=== PATIENT | female | born 1975 | race Caucasian/White ===

== ENCOUNTER 2017-10-15 20:26 | Observation (INO) ==
[2017-10-15] MEDS ORDERED: *HR* FentaNYL (PF) 100 MCG/2 ML VIAL IM ONE (21:32)
--- NOTE | 2017-10-15 21:32 | Emergency Department Note ---
Disposition Clinical Impression: Back pain Qualifiers: Back pain location: low back pain Chronicity: acute Back pain laterality: unspecified Sciatica presence: unspecified whether sciatica present Qualified Code(s): M54.5 - Low back pain Disposition: Still a Patient Referrals: Mathieu Smith MD [Primary Care Provider] - Forms: ED Satisfaction Letter General Adult HPI - General Chief complaint: ED Recheck/Abnormal Lab/Rx Stated complaint: incision site pain,swelling in legs,dizzy Time Seen by Provider: 10/15/17 21:17 Source: patient Limitations: no limitations Nursing Notes Reviewed: Yes Vital Signs Reviewed: Yes - History of Present Illness HPI Narrative: 42-year-old female who had a spinal cord stimulator removed couple of days ago. She was seen here 4 days ago for similar complaints as today and was found to have no issues. She says she is having worsening back pain called her pain management doctor who indicated he was concerned about a deep infection. Pt Subjective Complaint: Possible infection at spinal cord stimulator site Onset (ago): day(s) Location: back Radiation: extremity Pain Severity: moderate Pain Scale: 9 Quality: aching Consistency: constant Improves with: nothing Worsens with: nothing Associated symptoms: Denies: fever/chills Treatments Prior to Arrival: none - Related Data Home Medications Medication Instructions Recorded Confirmed Cholecalciferol (D-3) 5,000 unit PO DAILY 06/06/15 10/08/17 Losartan [Cozaar] 50 mg PO BID 06/06/15 10/08/17 Butalbital/Aspirin/Caffeine 1 each PO PRN PRN 01/27/16 10/08/17 [Fiorinal 50-325-40 mg Capsule] Carvedilol 12.5 mg PO BID 01/27/16 10/08/17 Citalopram Hydrobromide [Celexa] 10 mg PO DAILY 01/27/16 10/08/17 Pregabalin [Lyrica] 75 mg PO BID 01/27/16 10/08/17 Promethazine HCl 12.5 mg PO BID PRN 01/27/16 10/08/17 Ibuprofen [Motrin] 800 mg PO TID PRN 10/08/17 10/08/17 Mirtazapine [Remeron] 30 mg PO HS 10/08/17 10/08/17 Omeprazole [PriLOSEC] 40 mg PO DAILY 10/08/17 10/08/17 Propranolol [Inderal] 20 mg PO TID 10/08/17 10/08/17 Previous Rx's Medication Instructions Recorded clonazePAM [Klonopin] 1 mg PO TID PRN #90 tablet 05/22/16 Allergies Allergy/AdvReac Type Severity Reaction Status Date / Time butalbital Allergy Severe suicidal Verified 10/02/17 13:21 ideations lip swelling Penicillins Allergy Hives Verified 10/02/17 13:21 duloxetine [From Cymbalta] AdvReac Anxiety Verified 10/02/17 13:21 gabapentin AdvReac Muscle Pain Verified 10/02/17 13:21 hydrocodone AdvReac Dizziness Verified 10/02/17 13:21 lurasidone [From Latuda] AdvReac Hallucinati Verified 10/02/17 13:21 ng All systems ED: reviewed and negative except as stated. Constitutional: Denies: fever, chills, weakness, weight change Eyes: Denies: eye pain, eye discharge, vision change ENT ED: Denies: ear pain, throat pain, dental pain, hearing loss, epistaxis, congestion, dysphagia Cardiovascular: Denies: chest pain, palpitations, dyspnea on exertion, edema, syncope Respiratory: Denies: cough, dyspnea, wheezes, hemoptysis, stridor Gastrointestinal: Denies: abdominal pain, nausea, vomiting, diarrhea, constipation, hematemesis, melena, hematochezia Genitourinary: Denies: dysuria, frequency, hematuria, discharge Musculoskeletal: Reports: back pain. Denies: neck pain, arthralgia, myalgia Integumentary: Denies: rash, abrasion, lesions Neurological: Denies: headache, weakness, numbness, paresthesias, confusion, abnormal gait, vertigo Psychiatric: Denies: anxiety, depression, suicidal thoughts, homicidal thoughts , auditory hallucinations, visual hallucinations Endocrine: Denies: fatigue Hematological/Lymphatic: Denies: easy bleeding, easy bruising Allergic/Immunologic: Denies: facial swelling, urticaria Past Medical History - Past Medical History Medical history: Reports: arthritis, GERD, glaucoma, hyperlipidemia, hypertension, liver disease, migraine, osteoporosis, other Surgical history: Reports: , hysterectomy Psychiatric history: Reports: anxiety, depression, panic disorder, previous psychiatric hospitalization 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 - Social History Smoking Status: Current every day smoker Smokeless Tobacco Status: No Alcohol use: Reports: none Drug use: Reports: none Physical Exam - General Limitations: no limitations General appearance: alert, in no apparent distress - Head Head exam: atraumatic, normocephalic, normal inspection - Eye Eye exam: Present: normal appearance - ENT ENT exam: normal exam, normal oropharynx, mucous membranes moist - Neck Neck exam: Present: normal inspection, full ROM, trachea midline - Chest Chest inspection: Present: normal inspection, symmetric chest wall rise - Respiratory Respiratory exam: Present: normal lung sounds bilaterally - Cardiovascular Cardiovascular exam: Present: regular rate, normal rhythm, normal heart sounds - Abdominal Exam Abdominal exam: Present: soft, Non-Tender. Absent: tenderness, distention, guarding, rebound, rigidity - Extremities Exam Extremities exam: Present: pedal edema - Expanded Lower Extremity Exam Neurovascular/Tendon exam: Absent: motor deficit, sensory deficit, tendon deficit Gait: observed and normal - Back Exam Back exam: Present: other (Midline incision with some slight redness tender to palpation. Skin of the battery site has some mild tenderness.) - Neurological Exam Neurological exam: Present: alert, oriented X3 - Psychiatric Psychiatric exam: Present: normal affect, normal mood - Skin Skin exam: Present: warm, dry, intact, normal color Course Vital Signs Temperature 98.5 F 10/15/17 20:34 Pulse Rate 89 10/15/17 20:34 Respiratory Rate 18 10/15/17 20:34 Blood Pressure 136/86 10/15/17 20:34 O2 Sat by Pulse Oximetry 97 10/15/17 20:34 Temperature 98.5 F 10/15/17 20:34 Pulse Rate 89 10/15/17 20:34 Respiratory Rate 18 10/15/17 20:34 Blood Pressure 136/86 10/15/17 20:34 O2 Sat by Pulse Oximetry 97 10/15/17 20:34 Oxygen Delivery Oxygen Delivery Room Air Medical Decision Making - Lab Data Result diagrams: 10/15/17 21:44 10/15/17 21:44 Lab Results 10/15/17 10/15/17 10/15/17 Range/Units 21:44 21:44 21:44 WBC 7.2 (4.3-11.1) K/mcL RBC 4.63 (3.82-4.97) M/mcL Hgb 14.0 (11.5-15.4) g/dL Hct 42.7 (35.3-44.9) % MCV 92.2 (83.0-100.0) fL MCH 30.2 (28.0-33.3) pg MCHC 32.8 (31.6-35.5) g/dL RDW 12.3 (11.5-14.5) % Plt Count 238 (140-400) K/mcL MPV 9.1 L (9.4-12.4) fL Immature Gran % 0.3 (0-4) % Seg Neutrophils % 42.9 % Lymphocytes % 47.1 % Monocytes % 7.4 % Eosinophils % 2.0 % Basophils % 0.3 % Neutrophils # 3.1 (1.6-8.9) K/mcL Lymphocytes # 3.4 (0.6-4.6) K/mcL Monocytes # 0.5 (0.0-1.3) K/mcL Eosinophils # 0.1 (0.0-0.6) K/mcL Basophils # 0.0 (0.0-0.2) K/mcL ESR 15 (0-15) mm/hr Sodium 136 (136-145) mEq/L Potassium 3.9 (3.5-5.1) mEq/L Chloride 104 (98-107) mEq/L Carbon Dioxide 30 H (23-29) mEq/L BUN 7 (6-20) mg/dL Creatinine 0.62 (0.60-1.20) mg/dL Est GFR ( Amer) > 60 (> 60) Est GFR (Non-Af Amer) > 60 (> 60) BUN/Creatinine Ratio 11 (6-26) Glucose 85 (70-105) mg/dL Calculated Osmolality 279 L (280-300) Lactic Acid (0.5-2.2) mmol/L Calcium 9.3 (8.6-10.3) mg/dL B-Natriuretic Peptide (Less than 100) pg/mL Urine Color (Yellow) Urine Clarity (Clear) Urine pH (5.0-8.0) pH Units Ur Specific [place] (1.010-1.025) Urine Protein (Neg-Trace) mg/dL Urine Glucose (UA) (Normal) mg/dL Urine Ketones (Negative) mg/dL Urine Blood (Negative) Urine Nitrite (Negative) Urine Bilirubin (Negative) Urine Urobilinogen (Normal) mg/dL Ur Leukocyte Esterase (Negative) Ur Culture Indicated? (NO) 10/15/17 10/15/17 10/15/17 Range/Units 21:44 21:44 21:50 WBC (4.3-11.1) K/mcL RBC (3.82-4.97) M/mcL Hgb (11.5-15.4) g/dL Hct (35.3-44.9) % MCV (83.0-100.0) fL MCH (28.0-33.3) pg MCHC (31.6-35.5) g/dL RDW (11.5-14.5) % Plt Count (140-400) K/mcL MPV (9.4-12.4) fL Immature Gran % (0-4) % Seg Neutrophils % % Lymphocytes % % Monocytes % % Eosinophils % % Basophils % % Neutrophils # (1.6-8.9) K/mcL Lymphocytes # (0.6-4.6) K/mcL Monocytes # (0.0-1.3) K/mcL Eosinophils # (0.0-0.6) K/mcL Basophils # (0.0-0.2) K/mcL ESR (0-15) mm/hr Sodium (136-145) mEq/L Potassium (3.5-5.1) mEq/L Chloride (98-107) mEq/L Carbon Dioxide (23-29) mEq/L BUN (6-20) mg/dL Creatinine (0.60-1.20) mg/dL Est GFR ( Amer) (> 60) Est GFR (Non-Af Amer) (> 60) BUN/Creatinine Ratio (6-26) Glucose (70-105) mg/dL Calculated Osmolality (280-300) Lactic Acid 0.6 (0.5-2.2) mmol/L Calcium (8.6-10.3) mg/dL B-Natriuretic Peptide 31 (Less than 100) pg/mL Urine Color Yellow (Yellow) Urine Clarity Clear (Clear) Urine pH 7.0 (5.0-8.0) pH Units Ur Specific [place] 1.010 (1.010-1.025) Urine Protein Negative (Neg-Trace) mg/dL Urine Glucose (UA) Normal (Normal) mg/dL Urine Ketones Negative (Negative) mg/dL Urine Blood Negative (Negative) Urine Nitrite Negative (Negative) Urine Bilirubin Negative (Negative) Urine Urobilinogen Normal (Normal) mg/dL Ur Leukocyte Esterase Negative (Negative) Ur Culture Indicated? NO (NO) Geovanny - Geovanny Recommendation: Recommendation based on pending studies, treatments, or consults S.B.Marvel Report Given to: Dr. Francie Small Repor Time: 22:58
[2017-10-15 21:55] LABS: Basophils % 0.3 %; Eosinophils # 0.1 K/mcL (0.0-0.6); Hematocrit 42.7 % (35.3-44.9); Immature Granulocytes % 0.3 % (0-4); Lymphocytes # 3.4 K/mcL (0.6-4.6); Lymphocytes % 47.1 %; Mean Corpuscular HGB Conc 32.8 g/dL (31.6-35.5); Mean Corpuscular Hemoglobin 30.2 pg (28.0-33.3); Mean Corpuscular Volume 92.2 fL (83.0-100.0); Mean Platelet Volume 9.1 fL (9.4-12.4); Monocytes # 0.5 K/mcL (0.0-1.3); Monocytes % 7.4 %; Neutrophils # 3.1 K/mcL (1.6-8.9); Platelet Count 238 K/mcL (140-400); Red Blood Count 4.63 M/mcL (3.82-4.97); Red Cell Distribution Width 12.3 % (11.5-14.5); Segmented Neutrophils % 42.9 %
[2017-10-15 21:58] LABS: Bilirubin,Urine Negative (Negative); Blood,Urine Negative (Negative); Clarity,Urine Clear (Clear); Color,Urine Yellow (Yellow); Glucose,Urine (UA) Normal (Normal); Ketones,Urine Negative (Negative); Leukocyte Esterase,Urine Negative (Negative); Nitrite,Urine Negative (Negative); Protein,Urine Negative (Neg-Trace); Urobilinogen,Urine Normal (Normal)
[2017-10-15 22:14] LABS: BUN/Creatinine Ratio 11 (6-26); Blood Urea Nitrogen 7 mg/dL (6-20); Calcium 9.3 mg/dL (8.6-10.3); Carbon Dioxide 30 mEq/L (23-29); Chloride 104 mEq/L (98-107); Glucose 85 mg/dL (70-105); Osmolality,Calculated 279 (280-300); Potassium 3.9 mEq/L (3.5-5.1); Sodium 136 mEq/L (136-145); eGFR For African Americans > 60 (> 60); eGFR For Non-African Americans > 60 (> 60)
[2017-10-15] MEDS ORDERED: *HR* FentaNYL (PF) 100 MCG/2 ML VIAL IVP ONE (22:18)
[2017-10-15] MEDS ORDERED: *HR* FentaNYL (PF) 100 MCG/2 ML VIAL ONE (22:21)
--- NOTE | 2017-10-15 23:00 | Emergency Department Note ---
Disposition Clinical Impression: Postoperative back pain, Seroma after procedure Back pain Qualifiers: Back pain location: low back pain Chronicity: acute Back pain laterality: unspecified Sciatica presence: unspecified whether sciatica present Qualified Code(s): M54.5 - Low back pain Disposition: Admitted As Inpatient Condition: Good Referrals: Mathieu Smith MD [Primary Care Provider] - Forms: ED Satisfaction Letter Time of Disposition: 23:57 General Adult HPI - General Chief complaint: ED Recheck/Abnormal Lab/Rx Stated complaint: incision site pain,swelling in legs,dizzy Time Seen by Provider: 10/15/17 21:17 Source: patient Limitations: no limitations - History of Present Illness Location: back Pain Scale: 9 Quality: aching Improves with: nothing Worsens with: nothing Associated symptoms: Denies: fever/chills Treatments Prior to Arrival: none - Related Data Home Medications Medication Instructions Recorded Confirmed Cholecalciferol (D-3) 5,000 unit PO DAILY 06/06/15 10/08/17 Losartan [Cozaar] 50 mg PO BID 06/06/15 10/08/17 Butalbital/Aspirin/Caffeine 1 each PO PRN PRN 01/27/16 10/08/17 [Fiorinal 50-325-40 mg Capsule] Carvedilol 12.5 mg PO BID 01/27/16 10/08/17 Citalopram Hydrobromide [Celexa] 10 mg PO DAILY 01/27/16 10/08/17 Pregabalin [Lyrica] 75 mg PO BID 01/27/16 10/08/17 Promethazine HCl 12.5 mg PO BID PRN 01/27/16 10/08/17 Ibuprofen [Motrin] 800 mg PO TID PRN 10/08/17 10/08/17 Mirtazapine [Remeron] 30 mg PO HS 10/08/17 10/08/17 Omeprazole [PriLOSEC] 40 mg PO DAILY 10/08/17 10/08/17 Propranolol [Inderal] 20 mg PO TID 10/08/17 10/08/17 Previous Rx's Medication Instructions Recorded clonazePAM [Klonopin] 1 mg PO TID PRN #90 tablet 05/22/16 Allergies Allergy/AdvReac Type Severity Reaction Status Date / Time butalbital Allergy Severe suicidal Verified 10/02/17 13:21 ideations lip swelling Penicillins Allergy Hives Verified 10/02/17 13:21 duloxetine [From Cymbalta] AdvReac Anxiety Verified 10/02/17 13:21 gabapentin AdvReac Muscle Pain Verified 10/02/17 13:21 hydrocodone AdvReac Dizziness Verified 10/02/17 13:21 lurasidone [From Latuda] AdvReac Hallucinati Verified 10/02/17 13:21 ng Constitutional: Denies: fever, chills, weakness, weight change Eyes: Denies: eye pain, eye discharge, vision change ENT ED: Denies: ear pain, throat pain, dental pain, hearing loss, epistaxis, congestion, dysphagia Cardiovascular: Denies: chest pain, palpitations, dyspnea on exertion, edema, syncope Respiratory: Denies: cough, dyspnea, wheezes, hemoptysis, stridor Gastrointestinal: Denies: abdominal pain, nausea, vomiting, diarrhea, constipation, hematemesis, melena, hematochezia Genitourinary: Denies: dysuria, frequency, hematuria, discharge Musculoskeletal: Reports: back pain. Denies: neck pain, arthralgia, myalgia Integumentary: Denies: rash, abrasion, lesions Neurological: Denies: headache, weakness, numbness, paresthesias, confusion, abnormal gait, vertigo Psychiatric: Denies: anxiety, depression, suicidal thoughts, homicidal thoughts , auditory hallucinations, visual hallucinations Endocrine: Denies: fatigue Hematological/Lymphatic: Denies: easy bleeding, easy bruising Allergic/Immunologic: Denies: facial swelling, urticaria Past Medical History - Past Medical History Medical history: Reports: arthritis, GERD, glaucoma, hyperlipidemia, hypertension, liver disease, migraine, osteoporosis, other Surgical history: Reports: , hysterectomy Psychiatric history: Reports: anxiety, depression, panic disorder, previous psychiatric hospitalization 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 - Social History Smoking Status: Current every day smoker Smokeless Tobacco Status: No Alcohol use: Reports: none Drug use: Reports: none Physical Exam - General Limitations: no limitations General appearance: alert, in no apparent distress Course Vital Signs Temperature 98.5 F 10/15/17 20:34 Pulse Rate 89 10/15/17 20:34 Respiratory Rate 18 10/15/17 20:34 Blood Pressure 136/86 10/15/17 20:34 O2 Sat by Pulse Oximetry 97 10/15/17 20:34 Temperature 98.5 F 10/15/17 20:34 Pulse Rate 89 10/15/17 20:34 Respiratory Rate 18 10/15/17 20:34 Blood Pressure 136/86 10/15/17 20:34 O2 Sat by Pulse Oximetry 97 10/15/17 20:34 Oxygen Delivery Oxygen Delivery Room Air Medical Decision Making - Lab Data Lab results reviewed: Yes I reviewed the patient's lab results. Result diagrams: 10/15/17 21:44 10/15/17 21:44 Lab Results 10/15/17 10/15/17 10/15/17 Range/Units 21:44 21:44 21:44 WBC 7.2 (4.3-11.1) K/mcL RBC 4.63 (3.82-4.97) M/mcL Hgb 14.0 (11.5-15.4) g/dL Hct 42.7 (35.3-44.9) % MCV 92.2 (83.0-100.0) fL MCH 30.2 (28.0-33.3) pg MCHC 32.8 (31.6-35.5) g/dL RDW 12.3 (11.5-14.5) % Plt Count 238 (140-400) K/mcL MPV 9.1 L (9.4-12.4) fL Immature Gran % 0.3 (0-4) % Seg Neutrophils % 42.9 % Lymphocytes % 47.1 % Monocytes % 7.4 % Eosinophils % 2.0 % Basophils % 0.3 % Neutrophils # 3.1 (1.6-8.9) K/mcL Lymphocytes # 3.4 (0.6-4.6) K/mcL Monocytes # 0.5 (0.0-1.3) K/mcL Eosinophils # 0.1 (0.0-0.6) K/mcL Basophils # 0.0 (0.0-0.2) K/mcL ESR 15 (0-15) mm/hr Sodium 136 (136-145) mEq/L Potassium 3.9 (3.5-5.1) mEq/L Chloride 104 (98-107) mEq/L Carbon Dioxide 30 H (23-29) mEq/L BUN 7 (6-20) mg/dL Creatinine 0.62 (0.60-1.20) mg/dL Est GFR ( Amer) > 60 (> 60) Est GFR (Non-Af Amer) > 60 (> 60) BUN/Creatinine Ratio 11 (6-26) Glucose 85 (70-105) mg/dL Calculated Osmolality 279 L (280-300) Lactic Acid (0.5-2.2) mmol/L Calcium 9.3 (8.6-10.3) mg/dL B-Natriuretic Peptide (Less than 100) pg/mL Urine Color (Yellow) Urine Clarity (Clear) Urine pH (5.0-8.0) pH Units Ur Specific [place] (1.010-1.025) Urine Protein (Neg-Trace) mg/dL Urine Glucose (UA) (Normal) mg/dL Urine Ketones (Negative) mg/dL Urine Blood (Negative) Urine Nitrite (Negative) Urine Bilirubin (Negative) Urine Urobilinogen (Normal) mg/dL Ur Leukocyte Esterase (Negative) Ur Culture Indicated? (NO) 10/15/17 10/15/17 10/15/17 Range/Units 21:44 21:44 21:50 WBC (4.3-11.1) K/mcL RBC (3.82-4.97) M/mcL Hgb (11.5-15.4) g/dL Hct (35.3-44.9) % MCV (83.0-100.0) fL MCH (28.0-33.3) pg MCHC (31.6-35.5) g/dL RDW (11.5-14.5) % Plt Count (140-400) K/mcL MPV (9.4-12.4) fL Immature Gran % (0-4) % Seg Neutrophils % % Lymphocytes % % Monocytes % % Eosinophils % % Basophils % % Neutrophils # (1.6-8.9) K/mcL Lymphocytes # (0.6-4.6) K/mcL Monocytes # (0.0-1.3) K/mcL Eosinophils # (0.0-0.6) K/mcL Basophils # (0.0-0.2) K/mcL ESR (0-15) mm/hr Sodium (136-145) mEq/L Potassium (3.5-5.1) mEq/L Chloride (98-107) mEq/L Carbon Dioxide (23-29) mEq/L BUN (6-20) mg/dL Creatinine (0.60-1.20) mg/dL Est GFR ( Amer) (> 60) Est GFR (Non-Af Amer) (> 60) BUN/Creatinine Ratio (6-26) Glucose (70-105) mg/dL Calculated Osmolality (280-300) Lactic Acid 0.6 (0.5-2.2) mmol/L Calcium (8.6-10.3) mg/dL B-Natriuretic Peptide 31 (Less than 100) pg/mL Urine Color Yellow (Yellow) Urine Clarity Clear (Clear) Urine pH 7.0 (5.0-8.0) pH Units Ur Specific [place] 1.010 (1.010-1.025) Urine Protein Negative (Neg-Trace) mg/dL Urine Glucose (UA) Normal (Normal) mg/dL Urine Ketones Negative (Negative) mg/dL Urine Blood Negative (Negative) Urine Nitrite Negative (Negative) Urine Bilirubin Negative (Negative) Urine Urobilinogen Normal (Normal) mg/dL Ur Leukocyte Esterase Negative (Negative) Ur Culture Indicated? NO (NO) - Radiology Data Radiology results reviewed: Yes I reviewed the patient's radiology results. Attestation Statement - Attestation Attestation: Care of patient assumed from Dr. Pino at 11 PM pending lower extremity venous Dopplers and MRI of lumbar spine. She presented with back pain after removal of a pain stimulator. 23:56: MRI results. Fluid collections suggestive seromas versus possible infectious etiology. I will request admission to the medicine service for further evaluation. Patient requested additional analgesics
[2017-10-15] MEDS ORDERED: *HR* Morphine Immed Rel 30 MG TABLET PO ONE (23:55)
[2017-10-16] MEDS ORDERED: Acetaminophen 325 MG TABLET PO PRN (03:14)
[2017-10-16] MEDS ORDERED: Naloxone 0.4 MG/ML INJ IVP PRN (03:14)
[2017-10-16] MEDS ORDERED: Ibuprofen 800 MG TABLET PO PRN (03:18)
[2017-10-16] MEDS ORDERED: ASPIRIN PO PRN (03:18)
[2017-10-16] MEDS ORDERED: clonazePAM 1 MG TABLET PO PRN (03:18)
[2017-10-16] MEDS ORDERED: [UNRECOGNIZED DRUG - OTHER] PO PRN (03:18)
[2017-10-16] MEDS ORDERED: BUTALBITAL PO PRN (03:18)
[2017-10-16] MEDS ORDERED: CAFFEINE PO PRN (03:18)
[2017-10-16] MEDS: *HR* OxyCODONE/APAP 5/325 TABLET PO PRN ×2 (05:06→15:43)
--- NOTE | 2017-10-16 05:17 | Internal Med History&Physical ---
Date of Encounter: 10/16/17 Time of Encounter: 02:00 Assessment and Plan (1) DVT prophylaxis Current visit: Yes Status: Acute Heparin SC (2) Postoperative back pain Current visit: Yes Status: Acute Cont pain medication. Need pain management consult, non urgent, dayshift to call. (3) Seroma after procedure Current visit: Yes Status: Acute Cannot r/o infection. Pt has no fever or leukocytosis. ER empirically started vanco, will cont. F/U blood culture. Pain management consult. (4) Chronic low back pain Current visit: No Status: Acute Cont pain management with pain medication. Qualifiers: Back pain laterality: bilateral Sciatica presence: with sciatica Sciatica laterality: bilateral sciatica Qualified Code(s): M54.42 - Lumbago with sciatica, left side; M54.41 - Lumbago with sciatica, right side; M54.41 - Lumbago with sciatica, right side; G89.29 - Other chronic pain; G89.29 - Other chronic pain Internal Medicine - H&P: HPI Chief complaint: back pain Admitted From: Home Plans for Post Hospital Care: Home History of present illness: Ms. Ocampo is a 42 year old female with Hx of HTN, chronic back pain and leg weakness present to ER for back pain. Pt was placed a spinal stimulator arround 8 months ago by pain specialist Dr Walker. Pt feels bump and the stimulator was removed about 1 week ago. Pt feels back pain is getting worse with leg weakness. She has no fever, no SOB. She c/o mild nausea but no vomiting. She called Dr Walker's office and was advised to come to ER. In ER, MRI L-Spine has been done, which shows fluid collection in paraspinal area, suggest postoperative seromas but cannot r/o infection. Pt was admitted for further management. Past Med Surg Social Fam HX - Past Medical History Medical history: arthritis, GERD, glaucoma, hyperlipidemia, hypertension, liver disease, migraine, osteoporosis, other Psychiatric history: anxiety, depression, panic disorder, previous psychiatric hospitalization - Past Surgical History Surgical History: , hysterectomy - Social History Smoking Status: Current every day smoker Packs per day: 1 Smokeless Tobacco Status: No Alcohol use: none Drug use: none - Family History Mother History Unknown: Yes Internal Medicine - H&P: Meds Losartan [Cozaar] 50 mg PO BID 06/06/15 [History] Butalbital/Aspirin/Caffeine [Fiorinal 50-325-40 mg Capsule] 1 each PO PRN PRN [History] Carvedilol 12.5 mg PO BID 01/27/16 [History] Citalopram Hydrobromide [Celexa] 40 mg PO DAILY 01/27/16 [History] Pregabalin [Lyrica] 150 mg PO TID 01/27/16 [History] Promethazine HCl 12.5 mg PO BID PRN 01/27/16 [History] clonazePAM [Klonopin] 1 mg PO TID PRN #90 tablet 05/22/16 [Rx] Ibuprofen [Motrin] 800 mg PO TID PRN 10/08/17 [History] Omeprazole [PriLOSEC] 40 mg PO DAILY 10/08/17 [History] Propranolol [Inderal] 20 mg PO TID 10/08/17 [History] 3 Allergy/AdvReac Type Severity Reaction Status Date / Time butalbital Allergy Severe suicidal Verified 10/02/17 13:21 ideations lip swelling Penicillins Allergy Hives Verified 10/02/17 13:21 duloxetine [From Cymbalta] AdvReac Anxiety Verified 10/02/17 13:21 gabapentin AdvReac Muscle Pain Verified 10/02/17 13:21 hydrocodone AdvReac Dizziness Verified 10/02/17 13:21 lurasidone [From Latuda] AdvReac Hallucinati Verified 10/02/17 13:21 ng All Systems PM: A 10-system review of systems was performed and is negative for pertinent findings except as documented above in the HPI. - Constitutional Vitals: Temp Pulse Resp BP Pulse Ox 98.2 F 91 16 105/68 92 10/16/17 03:29 10/16/17 03:29 10/16/17 03:29 10/16/17 03:29 10/16/17 03:29 General appearance: Present: A&O X 3, no acute distress, answers questions appropriately - Head Head exam: Present: atraumatic, normocephalic - Eye Eye exam: Present: PERRL, conjuntiva pink, sclera anicteric Pupils: Present: PERRL - Neck Neck exam general surgery: Present: supple, trachea midline. Absent: lymphadenopathy - Respiratory Respiratory exam: Present: CTAB. Absent: accessory muscle use, rales, rhonchi, wheezes - Cardiovascular Cardiovascular exam: Present: RRR, +S1, +S2. Absent: diastolic murmur, gallop, rubs, systolic murmur - GI/Abdominal GI/Abdominal exam: Present: normal bowel sounds, soft, no peritoneal signs. Absent: distended, tenderness - Extremities Exam Extremities exam: Present: warm, radial pulses palpable and symmetrical. Absent : calf tenderness, cyanotic, pedal edema Additional comments: Incision on the back is clean, no signs of infection. - Neurological Exam Neurological exam: Present: CN II-XII intact, oriented X3, no focal deficits. Absent: pronater drift, facial droop, speech deficit - Skin Skin exam: Present: dry, intact Internal Med - H&P Results - Labs CBC & Chem 7: 10/15/17 21:44 10/15/17 21:44
[2017-10-16] MEDS ORDERED: *HR* Heparin 5,000 UNIT/ML VIAL SQ SCH (06:00)
[2017-10-16 06:13] LABS: Basophils % 0.4 %; Eosinophils # 0.1 K/mcL (0.0-0.6); Hematocrit 38.7 % (35.3-44.9); Hemoglobin 12.5 g/dL (11.5-15.4); Immature Granulocytes % 0.2 % (0-4); Lymphocytes # 2.7 K/mcL (0.6-4.6); Lymphocytes % 48.5 %; Mean Corpuscular HGB Conc 32.3 g/dL (31.6-35.5); Mean Platelet Volume 9.1 fL (9.4-12.4); Monocytes # 0.6 K/mcL (0.0-1.3); Neutrophils # 2.1 K/mcL (1.6-8.9); Platelet Count 192 K/mcL (140-400); Red Blood Count 4.16 M/mcL (3.82-4.97); Red Cell Distribution Width 12.4 % (11.5-14.5); Segmented Neutrophils % 38.9 %
[2017-10-16 06:37] LABS: BUN/Creatinine Ratio 11 (6-26); Blood Urea Nitrogen 6 mg/dL (6-20); Calcium 8.7 mg/dL (8.6-10.3); Carbon Dioxide 30 mEq/L (23-29); Chloride 107 mEq/L (98-107); Glucose 97 mg/dL (70-105); Magnesium 1.8 mg/dL (1.6-2.6); Osmolality,Calculated 284 (280-300); Potassium 4.1 mEq/L (3.5-5.1); Sodium 138 mEq/L (136-145); eGFR For African Americans > 60 (> 60); eGFR For Non-African Americans > 60 (> 60)
[2017-10-16] MEDS: Pregabalin 75 MG CAPSULE PO SCH ×2 (09:46→15:43)
--- NOTE | 2017-10-16 12:06 | Pain Management Consultation ---
Date of Encounter: 10/16/17 Time of Encounter: 12:00 Assessment and Plan (1) Seroma after procedure Current Visit: Yes Status: Acute Small post operative seroma present, no concern for infection based on afebrile exam, lack of focal neurologic deficits, typical MRI study for surgery she had, normal white blood cell count, and lack of other subjective signs of infection. Recommend discharge to home. I have made an outpatient follow-up with me in the next 1-2 weeks. Recommend use of an abdominal binder to stabilize the incision sites and promote healing as well as limits ROM of formation. Recommend very short course of oral Percocet over the next 1-3 days but no longer. Patient should be instructed to call my office if she is having any other problems or feel she is getting worse. The assessment and plan as outlined above was discussed with the patient and/or family members who expressed understanding and agreement. All questions were answered. History of Present Illness Chief complaint: back pain HPI: Ms. Ocampo is a 42 year old female complaining of back pain after surgical removal of leads and impulse generator that were a neuromodulation system. The patient complains of pain in her back in a generalized feeling of weakness. She states the pain is in her back and travels into her legs like it typically has in the past. She feels more pain on the right side of her lower back than on the left. She also says that there was a lump in the middle of her back that is now not present. Overall, her pain score right now is 8/10. She occasionally has pain traveling into her legs that is not a new finding for her. Pain is described as an ache in her back. Standing and walking makes the pain worse. Percocet makes the pain better. She denies any side effects from Percocet. She denies fever, chills, stiffness in her back. Past Med Surg Social Fam HX - Past Medical History Medical history: arthritis, GERD, glaucoma, hyperlipidemia, hypertension, liver disease, migraine, osteoporosis, other Psychiatric history: anxiety, depression, panic disorder, previous psychiatric hospitalization - Past Surgical History Surgical History: , hysterectomy - Social History Smoking Status: Current every day smoker Packs per day: 1 Smokeless Tobacco Status: No Alcohol use: none Drug use: none - Family History Mother History Unknown: Yes Medications and Allergies Losartan [Cozaar] 50 mg PO BID 06/06/15 [History] Carvedilol 12.5 mg PO BID 01/27/16 [History] Citalopram Hydrobromide [Celexa] 40 mg PO DAILY 01/27/16 [History] Pregabalin [Lyrica] 150 mg PO TID 01/27/16 [History] Promethazine HCl 12.5 mg PO BID PRN 01/27/16 [History] clonazePAM [Klonopin] 1 mg PO TID PRN #90 tablet 05/22/16 [Rx] Omeprazole [PriLOSEC] 40 mg PO DAILY 10/08/17 [History] Propranolol [Inderal] 20 mg PO TID 10/08/17 [History] 3 Allergy/AdvReac Type Severity Reaction Status Date / Time butalbital Allergy Severe suicidal Verified 10/02/17 13:21 ideations lip swelling Penicillins Allergy Hives Verified 10/02/17 13:21 duloxetine [From Cymbalta] AdvReac Anxiety Verified 10/02/17 13:21 gabapentin AdvReac Muscle Pain Verified 10/02/17 13:21 hydrocodone AdvReac Dizziness Verified 10/02/17 13:21 lurasidone [From Latuda] AdvReac Hallucinati Verified 10/02/17 13:21 ng Review of Systems - Constitutional Constitutional ROS IM: no photophobia, no phonophobia, no daytime sleepiness, no fever(s), no stops breathing during sleep - EENT Nose, mouth and throat: no headache(s), no neck pain, no neck trauma - Cardiovascular Cardiovascular ROS: no chest pain, no leg edema, no lightheadedness - Respiratory Respiratory: no pain on inspiration, no pain with cough - Gastrointestinal Gastrointestinal: no abdominal pain, no constipation, no diarrhea, no heartburn - Genitourinary Genitourinary ROS: no difficulty urinating, no flank pain, no urinary hesitancy - Musculoskeletal Musculoskeletal ROS: no muscle weakness, no numbness, no radiating pain into limb, no tingling - Integumentary Integumentary: no erythema, no lesions, no swelling - Neurological Neurological ROS: no abnormal gait, no behavioral changes, no focal weakness, no radicular pain - Psychiatric Psychiatric general: no anxiety, no confusion, no depression - Hematologic/Lymphatic Hematologic/Lymphatic pediatric: no easy bleeding, no easy bruising Physical Exam Initial Vital Signs Temp Pulse Resp BP Pulse Ox 98.5 F 89 18 136/86 97 10/15/17 20:34 10/15/17 20:34 10/15/17 20:34 10/15/17 20:34 10/15/17 20:34 - Additional Findings EYES:: pupils equal and round, no myosis. SKIN:: no areas of echymoses or petechiae incisions are healing well. No signs of drainage. No erythema. No swelling. Minimal tenderness with deep palpation over both wounds. CARDIOVASCULAR:: regular rate and rhythm PULMONARY:: Quiet, normal respiratory pattern. GASTROINTESTINAL:: nontender. soft. MUSCULOSKELETAL PALPATION:: paraspinous musculature is tender to deep palpation in the lumbar area bilaterally, right more so, unchanged from prior exams. ROM:: Active flexion and extension are reduced in the lumbar area. Active Rotation is normal in the lumbar area. STRENGTH:: RIGHT knee extension 5/5 :: LEFT knee extension 5/5 RIGHT knee flexion 5/5 :: LEFT knee flexion 5/5 RIGHT ankle dorsiflexion 5/5 :: LEFT ankle dorsiflexion 5/5 RIGHT ankle plantarflexion 5/5 :: LEFT ankle plantarflexion 5/5 RIGHT great toe dorsiflexion 5/5 :: LEFT great toe dorsiflexion 5/5 RIGHT great toe plantarflexion 5/5 :: LEFT great toe plantarflexion 5/5 NEUROLOGIC SENSATION:: hypesthesia is not noted in lower extremity dermatomes. SIGNS OF NEUROVASCULAR COMPRESSION Clonus: 1-2 beats at both ankles. Spasticity:: none Atrophy:: not present in UE or LE musculature Fasciculation:: not present in UE or LE musculature PSYCHIATRIC:: ORIENTATION:: awake and alert. INSIGHT:: good awareness of illness. AFFECT:: pleasant. Radiology Images Viewed By Me:: October 15, 2017 lumbar MRI shows small fluid collections posterior to the L3 spinous process and to a lesser extent in the flank. Fluid collections consistent with postoperative seroma. Laboratory values:: What blood cell count yesterday normal and even lower today. I have reviewed and agree with information documented in the scribed documentation, ROS, patient medications, allergies, medical history, surgical history, social history, and family history. Results - Labs 10/16/17 05:52 10/16/17 05:52 Abnormal lab results MPV 9.1 fL (9.4-12.4) L 10/16/17 05:52 Carbon Dioxide 30 mEq/L (23-29) H 10/16/17 05:52 Creatinine 0.57 mg/dL (0.60-1.20) L 10/16/17 05:52 Diabetes panel 10/16/17 Range/Units 05:52 Sodium 138 (136-145) mEq/L Potassium 4.1 (3.5-5.1) mEq/L Chloride 107 (98-107) mEq/L Carbon Dioxide 30 H (23-29) mEq/L BUN 6 (6-20) mg/dL Creatinine 0.57 L (0.60-1.20) mg/dL Glucose 97 (70-105) mg/dL Calcium 8.7 (8.6-10.3) mg/dL Calcium panel 10/16/17 Range/Units 05:52 Calcium 8.7 (8.6-10.3) mg/dL Pituitary panel 10/16/17 Range/Units 05:52 Sodium 138 (136-145) mEq/L Potassium 4.1 (3.5-5.1) mEq/L Chloride 107 (98-107) mEq/L Carbon Dioxide 30 H (23-29) mEq/L BUN 6 (6-20) mg/dL Creatinine 0.57 L (0.60-1.20) mg/dL Glucose 97 (70-105) mg/dL Calcium 8.7 (8.6-10.3) mg/dL Adrenal panel 10/16/17 Range/Units 05:52 Sodium 138 (136-145) mEq/L Potassium 4.1 (3.5-5.1) mEq/L Chloride 107 (98-107) mEq/L Carbon Dioxide 30 H (23-29) mEq/L BUN 6 (6-20) mg/dL Creatinine 0.57 L (0.60-1.20) mg/dL Glucose 97 (70-105) mg/dL Calcium 8.7 (8.6-10.3) mg/dL All other labs normal. Consult Discharge Plan - Plan Referrals: Casa Walker DO [Partnered Physician] - 10/31/17 2:20 pm Mathieu Smith MD [Primary Care Provider] -
--- NOTE | 2017-10-16 15:32 | Discharge Summary ---
- NOTES TO OUTPATIENT PROVIDER Notes to Outpatient Provider: Receiving a limited prescription for Percocet for back pain, to f/up in pain management clinic Date of Encounter: 10/16/17 Time of Encounter: 09:30 - Discharge Diagnosis (1) Seroma after procedure Priority: Primary Status: Acute (2) Essential hypertension Priority: Secondary Status: Chronic (3) Hyperlipidemia Priority: Secondary Status: Chronic Qualifiers: Hyperlipidemia type: unspecified Qualified Code(s): E78.5 - Hyperlipidemia , unspecified (4) Anxiety Priority: Secondary Status: Chronic (5) Chronic low back pain Priority: Secondary Status: Chronic Qualifiers: Back pain laterality: bilateral Sciatica presence: with sciatica Sciatica laterality: bilateral sciatica Qualified Code(s): M54.42 - Lumbago with sciatica, left side; M54.41 - Lumbago with sciatica, right side; M54.41 - Lumbago with sciatica, right side; G89.29 - Other chronic pain; G89.29 - Other chronic pain (6) Depression Priority: Secondary Status: Chronic Qualifiers: Depression Type: unspecified Qualified Code(s): F32.9 - Major depressive disorder, single episode, unspecified (7) Personality disorder Priority: Secondary Status: Chronic Hospital course: Ms. Ocamop is a 42 year old female with history of chronic low back pain, was admitted with acute back pain. Patient had spinal cord stimulator in the back for several years, which has been removed on 10/08/2017, surgical incisions are healing well. MRI lumbar spine done in the emergency room showed subcutaneous fluid collections measuring 13 mm posterior to the L3 spinous process and up to 5 cm within the left flank subcutaneous soft tissues, consistent with postoperative seroma. Patient was started on IV vancomycin in the emergency room for possible infection. However, she had no fever, leukocytosis, did not appear toxic. Pain management was consulted and patient was cleared for discharge with outpatient follow-up. She is noted to become extremely drowsy with narcotic pain medications and she is being discharged with a limited prescription for 3- 4 days of Percocet. She is medically stable. Discharge discussed with: patient - Time Spent with Patient Total time spent providing and/or coordinating discharge services: Greater than 30 minutes (40 min) - Discharge Medications Prescriptions: OxyCODONE/APAP 5/325 [Percocet 5/325 MG] 1 each PO Q6HR PRN 3 Days #10 tablet PRN Reason: Pain Home Medications: Losartan [Cozaar] 50 mg PO BID 06/06/15 [History] Carvedilol 12.5 mg PO BID 01/27/16 [History] Citalopram Hydrobromide [Celexa] 40 mg PO DAILY 01/27/16 [History] Pregabalin [Lyrica] 150 mg PO TID 01/27/16 [History] Promethazine HCl 12.5 mg PO BID PRN 01/27/16 [History] clonazePAM [Klonopin] 1 mg PO TID PRN #90 tablet 05/22/16 [Rx] Omeprazole [PriLOSEC] 40 mg PO DAILY 10/08/17 [History] Propranolol [Inderal] 20 mg PO TID 10/08/17 [History] OxyCODONE/APAP 5/325 [Percocet 5/325 MG] 1 each PO Q6HR PRN 3 Days #10 tablet [Rx] Allergies/Adverse Reactions: 3 Allergy/AdvReac Type Severity Reaction Status Date / Time butalbital Allergy Severe suicidal Verified 10/02/17 13:21 ideations lip swelling Penicillins Allergy Hives Verified 10/02/17 13:21 duloxetine [From Cymbalta] AdvReac Anxiety Verified 10/02/17 13:21 gabapentin AdvReac Muscle Pain Verified 10/02/17 13:21 hydrocodone AdvReac Dizziness Verified 10/02/17 13:21 lurasidone [From Latuda] AdvReac Hallucinati Verified 10/02/17 13:21 ng Date of admission: 10/16/17 00:12 Primary care physician: Mathieu Smith MD Consults: 10/16/17 01:33 Consult to Nutrition [CONS] Routine Comment: Consulting Provider: NUTRITION Reason for Dietary Consult: MST Score 10/16/17 05:28 Consult to Pain Management [CONS] Routine Consulting Provider: Pain Mgt Interventional Brittaney Reason for Consult: Chronic back pain, post stimulator removal, MRI shows fluid collection. Call Completed: No Discharging clinician: Bhavana Cain Anticipated date of discharge: 10/16/17 - Constitutional Vitals: Temp Pulse Resp BP Pulse Ox 98.2 F 70 16 113/71 93 10/16/17 11:13 10/16/17 11:13 10/16/17 11:13 10/16/17 11:13 10/16/17 11:13 General appearance: Present: A&O X 3 (very somnolent due to pain meds), no acute distress, answers questions appropriately - Cardiovascular Cardiovascular exam: Present: RRR, +S1, +S2. Absent: diastolic murmur, gallop, rubs, systolic murmur - Back Exam Additional comments: lower back and left lumbar area with healing surgical incisions, clean and dry - Patient Status Disposition: Home, Self-Care Condition: Good Functional capacity at discharge: independent ambulation Overall status at discharge: patient is progressing back to baseline - Discharge Instructions Follow Up With: Casa Walker DO [Partnered Physician] - 10/31/17 2:20 pm Mathieu Smith MD [Primary Care Provider] - (WEB REQUEST ENTERED. OFFICE WILL CALL WITH APPOINTMENT) Additional Instructions: F/up with PCP in 1-2 weeks - Diet and Activity Activity: resume usual activities as tolerated Diet: low fat, low cholesterol, low salt diet
[2017-10-16 16:22] VITALS: BP 109/74
[2017-10-16] MEDS ORDERED: Aminoglycoside Consult 1 EACH MC ONE (17:46)
== END 2017-10-16 17:47 | disposition home or self-care (01) ==
LOC: 3ANU 20:26 → EMEROO 20:26 → SUATTDRO 10-16 00:12 → 3ANU 10-16 00:58
PROVIDERS: ADMIT Internal Medicine; ATTEND Internal Medicine